=== PATIENT | male | born 1965 | race Caucasian/White ===

== ENCOUNTER 2022-02-19 11:33 | Emergency (ER) | payer OTHER ==
[2022-02-19 11:41] VITALS: BP 141/72; PULSE 74; TEMP 97.3; BMI 32.9
[2022-02-19] MEDS ORDERED: KETOROLAC TROMETHAMINE 30 MG/1 ML VIAL IM ONE (12:12)
== END 2022-02-19 13:51 | disposition home or self-care (01) ==
LOC: JERFT 11:33
PROC: 3E0233Z Introduction of Anti-inflammatory into Muscle, Percutaneous Approach (ICD-10-PCS; principal; 2022-02-19)
DX: M25.511 Pain in right shoulder (principal)
CPT/HCPCS: 73030-TC-RT-FY; 99284-25

== ENCOUNTER 2022-04-25 08:24 | Emergency (ER) | payer OTHER ==
[2022-04-25 08:31] VITALS: BP 125/86; PULSE 82; TEMP 98.1; BMI 35.2
[2022-04-25] MEDS ORDERED: DIPHTH,PERTUSS(ACELL),TET 0.5 ML DISP.SYRIN IM ONE ×2 (09:35→09:57)
== END 2022-04-25 10:14 | disposition home or self-care (01) ==
LOC: JERFT 08:24
PROC: 3E0234Z Introduction of Serum, Toxoid and Vaccine into Muscle, Percutaneous Approach (ICD-10-PCS; principal; 2022-04-25)
DX: S61.311A Laceration without foreign body of left index finger with damage to nail, initial encounter (principal); W26.8XXA Contact with other sharp object(s), not elsewhere classified, initial encounter
CPT/HCPCS: 73140-TC-LT-FY; 90471; 90715; 99283-25

== ENCOUNTER 2022-09-30 10:47 | Emergency (ER) | payer OTHER ==
[2022-09-30 11:13] VITALS: BP 122/79; PULSE 101; RESP 18; TEMP 98.6; BMI 28.3
== END 2022-09-30 12:42 | disposition home or self-care (01) ==
LOC: JER 10:47
DX: J09.X2 Influenza due to identified novel influenza A virus with other respiratory manifestations (principal)
CPT/HCPCS: 0241U-QW; 99283-25

== ENCOUNTER 2024-07-13 22:08 | Emergency (ER) | payer OTHER ==
[2024-07-13 22:16] VITALS: BP 160/77; PULSE 74; RESP 18; TEMP 98.6; BMI 28.3
[2024-07-13] MEDS ORDERED: SULFAMETHOXAZOLE/TRIMETHOPRIM 800MG/160MG D.S. TABLET ONE (23:00)
[2024-07-13] MEDS: SULFAMETHOXAZOLE/TRIMETHOPRIM 800MG/160MG D.S. TABLET PO ONE (23:03)
== END 2024-07-13 23:23 | disposition home or self-care (01) ==
LOC: JER 22:08
DX: L02.612 Cutaneous abscess of left foot (principal)
CPT/HCPCS: 99283-25